=== PATIENT | male | born 1990 | race African-American/Black ===

== ENCOUNTER 2018-07-31 02:28 | Emergency (ER) | payer OTHER ==
[~2018-07-31] VITALS: Ht 175.3 cm; Wt 91.0 kg
[2018-07-31 05:31] VITALS: BP 123/82
== END 2018-07-31 06:08 | disposition left against medical advice (07) ==
LOC: ER 03:45
DX: R51 Headache (principal); Z53.21 Procedure and treatment not carried out due to patient leaving prior to being seen by health care provider